=== PATIENT | female | born 1965 | race Caucasian/White ===

== ENCOUNTER → 2018-11-26 10:56 | Outpatient (CLI) | payer OTHER, SELFPAY ==
[2018-11-26 11:49] LABS: Absolute Lymphocyte Count 1.78 X10^3/ul (0.83-4.51); Absolute Neutrophil Count 2.9 X10^3/uL (2.0-7.7); Basophil# 0.02 X10^3/uL; Basophil% 0.4 % (0-1); Eosinophil# 0.08 X10^3/uL; Eosinophils% 1.5 % (0-5); Hematocrit 34.5 % (37-47); Hemoglobin 10.1 g/dl (12.0-15.0); Lymphocyte # 1.78 X10^3/ul (4.0); Lymphocyte % 33.3 % (19-41); Mean Corp Hgb Conc 29.3 g/gl (32-36); Mean Corpuscular Hgb 23.5 pg (27.0-32.0); Mean Corpuscular Volume 80.2 fL (81-99); Monocyte# 0.52 X10^3/uL; Monocyte% 9.7 % (0-10); Neutrophil # 2.94 X10^3/uL (2.7-7.7); Neutrophil % 54.9 % (47-70); Platelet Count 269 K/mm3 (150-450); RBC Distribution Width CV 15.9 % (11.6-14.6); RBC Distribution Width SD 46.5 fl (35.1-43.9); White Blood Count 5.4 K/mm3 (4.4-11.0)
[2018-11-26 11:53] LABS: POSITIVE COUNT NO; POSITIVE DIFFERENTIAL NO; POSITIVE MORPHOLOGY NO
[2018-11-26 12:04] LABS: Hemoglobin A1c 4.9 % (4.2-6.3)
[2018-11-26 12:35] LABS: Vitamin B12 205 pg/mL (211-911); Vitamin D,25 Hydroxy 17.6 ng/mL (29.95-100.01)
[2018-11-26 12:45] LABS: Anion Gap 7 (5-15); BUN 13 mg/dL (7-18); BUN/Creat Ratio 18.7 RATIO (10-20); Calcium,Total 8.4 mg/dL (8.5-10.1); Chloride 107 mmol/L (98-107); Cholesterol 192 mg/dL (200); EST Glomerular Filtration Rate 94 mL/min (>60); Est Glom Filt Rate - Afr Amer 113 mL/min (>60); Glucose 90 mg/dL (74-106); High Density Lipoprotein 73 mg/dL; Sodium Level 139 mmol/L (136-145); Thyroid Stim Hormone (TSH) 2.82 uIU/mL (0.358-3.74); Triglycerides 130 mg/dL; Very Low Density Lipoprotein 26 mg/dL (5-40)
== END ==
PROVIDERS: Family Provider Student in an Organized Health Care Education/Training Program; PCP Student in an Organized Health Care Education/Training Program; Referring Provider Student in an Organized Health Care Education/Training Program; Visit Provider Student in an Organized Health Care Education/Training Program
DX: Z00.00 Encounter for general adult medical examination without abnormal findings (principal); R53.83 Other fatigue; Z79.899 Other long term (current) drug therapy
CPT/HCPCS: 36415; 80048; 80061; 82306; 82607; 83036; 83735; 84443; 85025

== ENCOUNTER → 2020-01-04 | Outpatient (CLI) | payer OTHER, SELFPAY ==
[2020-01-04 15:08] LABS: Absolute Lymphocyte Count 1.82 X10^3/uL (0.83-4.51); Absolute Neutrophil Count 4.1 X10^3/uL (2.0-7.7); Basophil# 0.02 X10^3/uL; Basophil% 0.3 % (0-1); Eosinophil# 0.11 X10^3/uL; Eosinophils% 1.6 % (0-5); Hematocrit 44.7 % (37-47); Hemoglobin 14.3 g/dL (12.0-15.0); Lymphocyte # 1.82 X10^3/ul (4.0); Lymphocyte % 27.2 % (19-41); Mean Corpuscular Hgb 30.1 pg (27.0-32.0); Mean Corpuscular Volume 94.1 fL (81-99); Mean Platelet Vol. 10.2 fl (6.2-12.0); Monocyte# 0.63 X10^3/uL; Monocyte% 9.4 % (0-10); NRBC Flagged by Analyzer 0 % (0-5); Neutrophil # 4.07 X10^3/uL (2.7-7.7); Neutrophil % 61.1 % (47-70); Platelet Count 224 K/mm3 (150-450); RBC Distribution Width CV 13.2 % (11.6-14.6); RBC Distribution Width SD 45.3 fl (35.1-43.9); Red Blood Count 4.75 M/mm3 (4.2-5.4); White Blood Count 6.7 K/mm3 (4.4-11.0)
[2020-01-04 16:13] LABS: Vitamin B12 345 pg/mL (211-911); Vitamin D,25 Hydroxy 29.4 ng/mL (29.95-100.01)
[2020-01-04 17:08] LABS: AST(SGOT) 17 U/L (15-37); Alanine Aminotransfer ALT/SGPT 27 U/L (13-56); Albumin, Serum 3.7 g/dL (3.2-5.0); Alkaline Phosphatase 111 U/L (45-117); Anion Gap 6 (5-15); BUN 23 mg/dL (7-18); BUN/Creat Ratio 27.3 RATIO (10-20); Calcium,Total 8.8 mg/dL (8.5-10.1); Chloride 109 mmol/L (98-107); Creatinine, Serum 0.84 mg/dL (0.55-1.02); EST Glomerular Filtration Rate 75 mL/min (>60); Est Glom Filt Rate - Afr Amer 90 mL/min (>60); Follicle Stimulating Hormone 53.8 mIU/mL; Globulin 3.6 g/dL (2.2-4.2); Glucose 83 mg/dL (74-106); Lipase 220 U/L (73-393); Potassium 4.1 mmol/L (3.5-5.1); Protein, Total 7.3 g/dL (6.4-8.2); Sodium Level 141 mmol/L (136-145); Thyroid Stim Hormone (TSH) 2.13 uIU/mL (0.358-3.74)
== END | disposition home or self-care (01) ==
LOC: LAB 13:47
PROVIDERS: PCP Student in an Organized Health Care Education/Training Program; Referring Provider Student in an Organized Health Care Education/Training Program; Visit Provider Student in an Organized Health Care Education/Training Program
DX: R53.83 Other fatigue (principal); R23.2 Flushing; R11.0 Nausea; R63.0 Anorexia
CPT/HCPCS: 36415; 80053; 82306; 82607; 83001; 83690; 84439; 84443; 85025

== ENCOUNTER → 2021-03-21 10:57 | Outpatient (CLI) | payer OTHER, SELFPAY ==
[2021-03-21 11:28] LABS: Absolute Neutrophil Count 2.7 X10^3/uL (2.0-7.7); Basophil# 0.03 X10^3/uL; Basophil% 0.6 % (0-1); Eosinophil# 0.07 X10^3/uL; Eosinophils% 1.5 % (0-5); Hematocrit 41.9 % (37-47); Hemoglobin 12.9 g/dL (12.0-15.0); Lymphocyte % 33.3 % (19-41); Mean Corp Hgb Conc 30.8 g/dL (32-36); Mean Corpuscular Hgb 28.8 pg (27.0-32.0); Mean Corpuscular Volume 93.5 fL (81-99); Mean Platelet Vol. 9.7 fl (6.2-12.0); Monocyte# 0.42 X10^3/uL; Monocyte% 8.8 % (0-10); NRBC Flagged by Analyzer 0 % (0-5); Neutrophil # 2.67 X10^3/uL (2.7-7.7); Neutrophil % 55.6 % (47-70); Platelet Count 204 K/mm3 (150-450); RBC Distribution Width CV 13.6 % (11.6-14.6); RBC Distribution Width SD 46.5 fl (35.1-43.9); Red Blood Count 4.48 M/mm3 (4.2-5.4); White Blood Count 4.8 K/mm3 (4.4-11.0)
[2021-03-21 12:02] LABS: T3 Total - Triiodothyronine 1.09 ng/mL (0.6-1.81); Vitamin D,25 Hydroxy 19.3 ng/mL
[2021-03-21 12:03] LABS: ALB/GLOB Ratio 1.1 RATIO (0.9-2.4); AST(SGOT) 14 U/L (15-37); Alanine Aminotransfer ALT/SGPT 21 U/L (13-56); Albumin, Serum 3.6 g/dL (3.2-5.0); Alkaline Phosphatase 114 U/L (45-117); Anion Gap 5 (5-15); BUN 18 mg/dL (7-18); BUN/Creat Ratio 22.4 RATIO (10-20); Calcium,Total 8.5 mg/dL (8.5-10.1); Chloride 112 mmol/L (98-107); Cholesterol 189 mg/dL (200); EST Glomerular Filtration Rate 79 mL/min (>60); Est Glom Filt Rate - Afr Amer 95 mL/min (>60); Ferritin 9 ng/mL (8-252); Globulin 3.4 g/dL (2.2-4.2); Glucose 95 mg/dL (74-106); High Density Lipoprotein 74 mg/dL; Sodium Level 142 mmol/L (136-145); T4 Free Direct 0.93 ng/dL (0.76-1.46); Thyroid Stim Hormone (TSH) 1.99 uIU/mL (0.358-3.74); Triglycerides 95 mg/dL; Very Low Density Lipoprotein 19 mg/dL (5-40)
[2021-03-21 12:07] LABS: Hemoglobin A1c 5.1 % (3.8-5.6)
== END ==
PROVIDERS: PCP Student in an Organized Health Care Education/Training Program; Referring Provider Student in an Organized Health Care Education/Training Program; Visit Provider Student in an Organized Health Care Education/Training Program
DX: D50.9 Iron deficiency anemia, unspecified (principal); E66.01 Morbid (severe) obesity due to excess calories; F34.1 Dysthymic disorder; I10 Essential (primary) hypertension; E55.9 Vitamin D deficiency, unspecified; Z11.4 Encounter for screening for human immunodeficiency virus [HIV]; Z13.1 Encounter for screening for diabetes mellitus; Z13.220 Encounter for screening for lipoid disorders; Z13.29 Encounter for screening for other suspected endocrine disorder
CPT/HCPCS: 36415; 80053; 80061; 82306; 82728; 83036; 84439; 84443; 84480; 85025

== ENCOUNTER 2021-12-25 13:57 | Outpatient (CLI) | payer OTHER, SELFPAY ==
[2021-12-25 14:43] LABS: Absolute Lymphocyte Count 3.08 X10^3/uL (0.83-4.51); Absolute Neutrophil Count 3.2 X10^3/uL (2.0-7.7); Basophil# 0.03 X10^3/uL; Basophil% 0.4 % (0-1); Eosinophil# 0.08 X10^3/uL; Eosinophils% 1.1 % (0-5); Hematocrit 38.8 % (37-47); Hemoglobin 12.1 g/dL (12.0-15.0); Lymphocyte # 3.08 X10^3/ul (0.83-4.51); Lymphocyte % 43.6 % (19-41); Mean Corp Hgb Conc 31.2 g/dL (32-36); Mean Corpuscular Volume 86.6 fL (81-99); Mean Platelet Vol. 9.5 fl (6.2-12.0); Monocyte# 0.62 X10^3/uL; Monocyte% 8.8 % (0-10); NRBC Flagged by Analyzer 0 % (0-5); Neutrophil # 3.24 X10^3/uL (2.7-7.7); Platelet Count 251 K/mm3 (150-450); RBC Distribution Width CV 14.9 % (11.6-14.6); RBC Distribution Width SD 47.8 fl (35.1-43.9); Red Blood Count 4.48 M/mm3 (4.2-5.4); White Blood Count 7.1 K/mm3 (4.4-11.0)
[2021-12-25 15:02] LABS: Hemoglobin A1c 5.3 % (3.8-5.6)
[2021-12-25 15:15] LABS: T3 Total - Triiodothyronine 1.26 ng/mL (0.6-1.81); Vitamin B12 329 pg/mL (211-911); Vitamin D,25 Hydroxy 32.3 ng/mL
[2021-12-25 15:18] LABS: ALB/GLOB Ratio 0.9 RATIO (0.9-2.4); AST(SGOT) 18 U/L (15-37); Alanine Aminotransfer ALT/SGPT 18 U/L (13-56); Albumin, Serum 3.5 g/dL (3.2-5.0); Alkaline Phosphatase 113 U/L (45-117); Anion Gap 4 (5-15); BUN 17 mg/dL (7-18); BUN/Creat Ratio 21.6 RATIO (10-20); Calcium,Total 8.4 mg/dL (8.5-10.1); Chloride 109 mmol/L (98-107); Cholesterol 181 mg/dL (200); Creatinine, Serum 0.79 mg/dL (0.55-1.02); EST Glomerular Filtration Rate 80 mL/min (>60); Est Glom Filt Rate - Afr Amer 97 mL/min (>60); Ferritin 11 ng/mL (8-252); Globulin 3.7 g/dL (2.2-4.2); Glucose 100 mg/dL (74-106); High Density Lipoprotein 58 mg/dL; Iron 49 ug/dL (50-170); Iron Binding Capacity,Total 455 ug/dL (250-450); PERCENT IRON SATURATION 10.8 % (15.0-55.0); Potassium 4.5 mmol/L (3.5-5.1); Protein, Total 7.2 g/dL (6.4-8.2); Sodium Level 140 mmol/L (136-145); T4 Free Direct 0.89 ng/dL (0.76-1.46); Thyroid Stim Hormone (TSH) 1.69 uIU/mL (0.358-3.74); Triglycerides 260 mg/dL; Very Low Density Lipoprotein 52 mg/dL (5-40)
== END 2021-12-25 23:59 | disposition home or self-care (01) ==
PROVIDERS: PCP Student in an Organized Health Care Education/Training Program; Visit Provider Student in an Organized Health Care Education/Training Program
DX: Z13.1 Encounter for screening for diabetes mellitus (principal); E66.01 Morbid (severe) obesity due to excess calories; Z11.4 Encounter for screening for human immunodeficiency virus [HIV]; D50.9 Iron deficiency anemia, unspecified; Z13.220 Encounter for screening for lipoid disorders; F34.1 Dysthymic disorder; Z13.29 Encounter for screening for other suspected endocrine disorder; I10 Essential (primary) hypertension; E53.8 Deficiency of other specified B group vitamins; E55.9 Vitamin D deficiency, unspecified
CPT/HCPCS: 36415; 80053; 80061; 82306; 82607; 82728; 83036; 83540; 83550; 84439; 84443; 84480; 85025

== ENCOUNTER → 2022-11-01 | Outpatient (CLI) | payer OTHER, SELFPAY ==
[2022-11-01 10:50] LABS: Hemoglobin A1c 5.5 % (3.8-5.6)
[2022-11-01 10:57] LABS: Vitamin D,25 Hydroxy 40.5 ng/mL
[2022-11-01 11:05] LABS: Cholesterol 174 mg/dL (200); Glucose 102 mg/dL (74-106); High Density Lipoprotein 54 mg/dL; Triglycerides 148 mg/dL; Very Low Density Lipoprotein 30 mg/dL (5-40)
[2022-11-08 16:17] LABS: HPV APTIMA, High Risk Negative (Negative)
== END | disposition home or self-care (01) ==
PROVIDERS: PCP Student in an Organized Health Care Education/Training Program; Referring Provider Obstetrics & Gynecology; Visit Provider Obstetrics & Gynecology
DX: Z12.4 Encounter for screening for malignant neoplasm of cervix (principal); Z13.1 Encounter for screening for diabetes mellitus; E66.9 Obesity, unspecified; Z13.29 Encounter for screening for other suspected endocrine disorder; Z13.21 Encounter for screening for nutritional disorder
CPT/HCPCS: 36415; 80061; 82306; 82947; 83036; 84443; 87624; 88175; G0145

== ENCOUNTER → 2022-11-07 | Outpatient (CLI) | payer OTHER, SELFPAY ==
--- NOTE | 2022-11-07 13:10 | BI_ITS ---
MAMMOGRAPHY - BILATERAL SCREENING REASON FOR EXAM: Female, 57 years old. Routine annual screening examination. PERTINENT HISTORY: Aunt with breast cancer. TECHNIQUE: Digital bilateral breast chrystal (3D mammographic acquisition) in the CC and MLO projections. 2-D mediolateral oblique (MLO) and craniocaudad (CC) views of both breasts were obtained. CAD: Full Field Digital Mammography with Computer Added Detection was performed. COMPARISON: Comparison is made with prior examination 09/17/2017. FINDINGS: Breast Composition: There are scattered areas of fibroglandular density. There are no dominant masses or suspicious calcifications. Stable small benign-appearing bilateral axillary lymph nodes. No other significant abnormalities are identified. There has been no significant change since the prior study. BI/SCRN MAMM (CAD)W/CHRYSTAL BILAT IMPRESSION: Stable bilateral screening mammogram. Yearly follow-up mammogram recommended. (A) ASSESSMENT CATEGORY: BIRADS Category 2: Benign. A letter regarding these results will be sent to the patient by the facility within 30 days. Approximately 10% of breast cancers are not detected by mammography. A normal mammogram should not delay biopsy of a clinically suspicious abnormality. [id number] Electronically Signed: Caio Shankar MD at 14:48 EST ,
== END | disposition home or self-care (01) ==
LOC: OPBI 13:08
PROVIDERS: PCP Student in an Organized Health Care Education/Training Program; Visit Provider Obstetrics & Gynecology
DX: Z12.31 Encounter for screening mammogram for malignant neoplasm of breast (principal)
CPT/HCPCS: 77063; 77067

== ENCOUNTER → 2023-02-06 | Outpatient (CLI) | payer OTHER, SELFPAY ==
--- NOTE | 2023-02-07 08:21 | PFT ---
INTRODUCTION: The patient is a 57-year-old female that presents for pulmonary function studies secondary to a diagnosis of asthma. Respiratory therapy reported good patient effort. Bronchodilators were used during testing. INTERPRETATION: Forced expiration spirometry demonstrates the presence of a mild large airways obstructive ventilatory defect. There was a significant response to aerosolized bronchodilators. Spirograms are of good quality and plateau normally. Body plethysmography was performed and reveals lung volumes to be within normal limits. Diffusing capacity by single breath CO was also within normal limits. IMPRESSION: Partially reversible mild large airways obstructive ventilatory defect with preserved lung volumes and diffusing capacity.
== END | disposition home or self-care (01) ==
PROVIDERS: PCP Student in an Organized Health Care Education/Training Program; Referring Provider Internal Medicine Critical Care Medicine; Visit Provider Internal Medicine Critical Care Medicine
DX: J45.909 Unspecified asthma, uncomplicated (principal)
CPT/HCPCS: 94060; 94726; 94729

== ENCOUNTER → 2023-12-31 | Outpatient (CLI) | payer OTHER, SELFPAY ==
--- OUTSIDE RECORDS SUMMARY | 2023-12-31 12:01 | XMS RPT_ITS | CCD ---
Author Name Unknown Address [address] [place] [address] Organization [facility] Care Team Providers Care Bee Producer Name Role Phone Jaime Porter DO Primary Care Provider JAIME PORTER Referring Unavailable JAIME PORTER Attending Unavailable JAIME PORTER Primary Care Unavailable Allergies Allergy Classification Reported Allergen(s) Allergy Type Date of Onset Reaction(s) Facility (5 sources) NITROFURANTOIN, MACROCRYSTALS / Nitrofurantoin, Monohydrate; Translations: [NITROFURANTOIN MONOHYD/M-CRYST] Drug Allergy 6 [facility] Work Phone: (5 sources) Salicylate product; Translations: [SALICYLATES] Propensity to adverse reactions 5 [facility] Work Phone: (4 sources) time release medication [Other] Propensity to adverse reactions 6 Other: See Comments [facility] Work Phone: (1 source) OTHER; Translations: [OTHER] Propensity to adverse reactions (disorder) 6 [facility] Repository Medications Completed/Discontinued Medications Medication Drug Class(es) Dates Sig (Normalized) Sig (Original) [id number] 200 actuat albuterol 0.09 mg/actuat metered dose inhaler (4 sources) beta2-Adrenergic Agonist Start: 04-02-2023 take 2 puff(s) by inhalation every four hours as needed albuterol HFA (PROAIR HFA) 90 mcg/actuation inhaler Indications: Moderate persistent reactive airway disease without complication Inhale 2 Puffs as instructed every 4 hours as needed. 18 g 3 04/02/2023 Active Problems Active Problems Problem Classification Problem Date Documented Da te Episodic/Chronic Asthma (5 sources) Reactive airway disease; Translations: [Unspecified asthma, uncomplicated] Onset: 12-01-2018 12-01-2018 Chronic Essential hypertension (4 sources) Essential hypertension; Translations: [Essential (primary) hypertension] Onset: 08-21-2005 09-26-2016 Chronic Headache; including migraine (8 sources) Migraine with aura; Translations: [Migraine with aura, not intractable, without status migrainosus] Onset: 08-11-2014 08-04-2010 Chronic Mood disorders (5 sources) Dysthymia; Translations: [Dysthymic disorder] Onset: 08-21-2005 10-02-2016 Chronic Nutritional deficiencies (5 sources) Vitamin D deficiency; Translations: [Vitamin D deficiency, unspecified] Onset: 08-04-2010 08-04-2010 Chronic Other nutritional; endocrine; and metabolic disorders (8 sources) Body mass index 40+ - severely obese; Translations: [Morbid (severe) obesity due to excess calories] Onset: 08-22-2005 03-19-2018 Chronic Other nutritional; endocrine; and metabolic disorders (4 sources) Disorder of phosphorus metabolism; Translations: [Disorder of phosphorus metabolism, unspecified] Onset: 03-12-2007 03-12-2007 Chronic Other screening for suspected conditions (not mental disorders or infectious disease) (1 source) Patient encounter status; Translations: [Encounter for screening mammogram for malignant neoplasm of breast] Episodic Other upper respiratory disease (5 sources) Allergic rhinitis; Translations: [Allergic rhinitis, unspecified] Onset: 12-01-2018 12-01-2018 Chronic Past or Other Problems Problem Classification Problem Date Documented Date Episodic/Chronic Deficiency and other anemia (4 sources) Iron deficiency anemia; Translations: [Iron deficiency anemia, unspecified] Onset: 12-01-2018 12-01-2018 Episodic Malaise and fatigue (4 sources) Fatigue; Translations: [Other fatigue] Onset: 12-01-2018 12-01-2018 Episodic Nutritional deficiencies (4 sources) Cobalamin deficiency; Translations: [Deficiency of other specified B group vitamins] Onset: 12-01-2018 12-01-2018 Episodic Other and unspecified benign neoplasm (4 sources) Benign neoplasm of soft tissue; Translations: [Benign neoplasm of connective and other soft tissue, unspecified] Onset: 01-04-2012 01-04-2012 Episodic Other connective tissue disease (4 sources) Neuropathy; Translations: [Neuralgia, neuritis, and radiculitis, unspecified] Onset: 08-01-2012 08-01-2012 Episodic Other skin disorders (4 sources) Ingrowing nail; Translations: [Ingrowing nail] Onset: 09-20-2005 09-20-2005 Episodic Other skin disorders (4 sources) Acne; Translations: [Acne, unspecified] Onset: 02-10-2010 02-10-2010 Episodic Residual codes; unclassified (4 sources) History of endometrial ablation; Translations: [Other specified postprocedural states] Onset: 12-04-2012 12-04-2012 Episodic Results Test Name Value Interpretation Reference Range Facil ity Encounters Encounter Date Encounter Type Care Provider Facility Start: 12-30-2023 Telephone encounter Jaime cooper DO Work Phone: [facility] Procedures Date Procedure Procedure Detail Performing Clinician Start: 03-21-2021 Lipid 1996 panel - Serum or Plasma Jaime Porter DO Work Phone: Start: 09-17-2017 Mammography Jaime Porter DO Work Phone: Start: 10-15-2016 Colonoscopy Jaime Porter DO Work Phone: Start: 08-22-2005 History of gastrointestinal tract bypass Intestinal bypass or anastomosis status Jaime Porter DO Work Phone: Plan of Treatment Date Care Activity Detail Author Start: 12-02-2027 Screening for malignant neoplasm of cervix HPV Testing [facility] Start: 12-02-2026 Screening for malignant neoplasm of cervix Pap Testing [facility] Start: 10-15-2026 Colonoscopy COLONOSCOPY [facility] Start: 10-15-2026 COLORECTAL CANCER SCREENING COLORECTAL CANCER SCREENING [facility] Start: 10-15-2026 Screening for malignant neoplasm of colon [facility] Start: 03-21-2026 Lipid panel Lipid Screening [facility] Start: 03-21-2026 LIPID SCREEN LIPID SCREEN [facility] Start: 04-02-2024 Annual PCP Team Chronic Disease Visit Annual PCP Team Chronic Disease Visit [facility] Start: 03-29-2024 BP Controlled (<130/80) BP Controlled (<130/80) [facility] Start: 03-21-2024 DIABETES SCREEN DIABETES SCREEN [facility] Start: 03-21-2024 Diabetes Screening Diabetes Screening [facility] Start: 07-19-2023 Covid-19 Vaccine () Covid-19 Vaccine () [facility] Start: 07-19-2023 Influenza vaccination Influenza Vaccine (#[facility]) [facility] Start: 03-18-2023 Urine microalbumin profile [facility] Start: 07-19-2022 Influenza vaccination INFLUENZA (#1) [facility] Start: 04-21-2022 ANNUAL PCP TEAM CHRONIC DISEASE VISIT ANNUAL PCP TEAM CHRONIC DISEASE VISIT [facility] Start: 03-25-2021 COVID-19 VACCINE (2 - Booster for Nayeli series) COVID-19 VACCINE (2 - Booster for Nayeli series) [facility] Start: 02-28-2021 HPV TESTING HPV TESTING [facility] Start: 02-28-2021 PAP TESTING PAP TESTING [facility] Start: 09-17-2018 Mammography MAMMOGRAM [facility] Start: 09-17-2018 Screening for malignant neoplasm of breast Mammogram Screening [facility] Start: 2015 SHINGRIX VACCINE (1 of 2) SHINGRIX VACCINE (1 of 2) [facility] Start: 2010 COLOGUARD (FIT-DNA) COLOGUARD (FIT-DNA) [facility] Start: [address] COLONOGRAPHY [facility] Start: 2010 FECAL OCCULT BLOOD FECAL OCCULT BLOOD [facility] Start: 2010 Screening for malignant neoplasm of colon [facility] Start: 2010 SIGMOIDOSCOPY SIGMOIDOSCOPY [facility] Start: 1983 BP CONTROLLED (<130/80) BP CONTROLLED (<130/80) [facility] Start: 1983 HIV SCREENING HIV SCREENING [facility] Start: 1983 HIV screening HIV Screening [facility] Start: 1965 HEPATITIS B (1 of 3 - 3-dose series) HEPATITIS B (1 of 3 - 3-dose series) [facility] Start: 1965 Hepatitis B Vaccine (1 of 3 - 3-dose series) Hepatitis B Vaccine (1 of 3 - 3-dose series) [facility] End: 06-15-2023 Screening mammography bi 2-view breast inc cad [facility] SCREEN[facility] Radiology Routine Encounter for screening mammogram for breast cancer 1 Occurrences starting 05/16/2022 until 06/15/2023 [facility] Work Phone: Immunizations Immunization Date Immunization Notes Care Provider Yaw mancini 01-28-2021 COVID-19 vaccine (NAYELI) Jaime Porter DO Work Phone: [facility] 12-01-2018 influenza virus vacc ine, unspecified formulation Jaime Porter DO Work Phone: [facility] 03-18-2013 tetanus toxoid, redu eugene diphtheria toxoid, and acellular pertussis vaccine, adsorbed Jaime Porter DO Work Phone: [facility] Payers Date Payer Category Payer Unknown MMO [employer] [id number] 2022-Present [phone] [address] [place] [address] Indemnity [id number] 2022 Unknown [id number] 2021 Unknown [employer] [id number] 2021-Present [phone] [address] [place] [address] PPO [id number] Social History Date Type Detail Facility Start: 10-29-2012 Tobacco smoking stat us WYIS Never smoked tobacco [facility] Start: 04-21-2021 End: 04-02-2023 Alcohol intake Current non-drinker of alcohol (finding) [facility] Start: 1965 Sex Assigned At Not on file [facility] Start: 10-29-2012 Tobacco use and exposure Smokeless tobacco non-user [facility] Work Phone: Start: 12-01-2018 End: 04-02-2023 History of Social function [facility] Start: 12-01-2018 End: 04-02-2023 Tobacco use panel [facility] Adult Depression Screening Assessment 0 [facility] Clinical Notes 08-01-2012 to 12-30-2023 Telephone Encounter - Yin Lindsey RN - 12/30/2023 8:55 AM ESTTelephone Encounter - Alina Harvey LPN - 01/16/2023 1:45 PM ESTTelephone Encounter - Sachi Lorie Pss - 01/15/2023 9:02 AM EST Note Date & Type Note Facility 12-30-2023 Miscellaneous Notes Acacia from [facility] called in to see if we had any updated OV on Pt having pulmonary issues. She said the Pt states she has been having issues since October. I let her know that last OV Pt had with provider was 04/02/23, she said she didn't need that sent. She said it looked like she had been going to the [facility] and they were having issues getting the reports from them. I told her we couldn't send them to them if we had them. She said she will have to hope that they get back to her. documented in this encounter [facility] 04-24-2023 Note Patient Outreach (IN [facility]) AILEEN SRINIVASAN ([id number]) 1965 F Date Time Provider Department 04/24/23 JAIME PORTER During your visit today, we recorded the following information about you: Allergies As of Date: 04/24/2023 Noted Allergy Reaction ASA (SALICYLATES) 08/21/2005 Comments: due to surgery MACROBID (NITROFURANTOIN MONOHYD/*05/07/2006 Comments: Severe Migraines time release medication [Other] 11/22/2005 14 - Other: See Comments Comments: in effective due to gastric bypass Date Reviewed: 04/21/2021 Reviewed by: Suellen Bull LPN - Fully Assessed Visit Diagnosis:Encounter for screening mammogram for breast cancer [Z12.31] Order(s):[facility] S[facility]ENING [[id number]] Order #: [id number] FUTURE Prescriptions as of 04/29/2023 - sertraline (ZOLOFT) 100 mg tablet Take 2 tablets by mouth once daily. - fluticasone-salmeterol (ADVAIR DISKUS) 500-50 mcg/dose dsdv Inhale 1 Puff as instructed twice daily. - SUMAtriptan (IMITREX) 100 mg tablet Take 1 tablet by mouth. Take one(1) at onset of headache, may repeat dose in 2 hours - cholecalciferol, Vitamin D3, (VITAMIN D3) 1,250 mcg (50,000 unit) cap capsule Take 1 capsule by mouth one time a week. - montelukast (SINGULAIR) 10 mg tablet Take 1 tablet by mouth daily at bedtime. - albuterol HFA (PROAIR HFA) 90 mcg/actuation inhaler Inhale 2 Puffs as instructed every 4 hours as needed. - furosemide (LASIX) 20 mg tablet Take 1 tablet by mouth once daily. For leg swelling - Ascorbic Acid (VITAMIN C) 100 mg tablet Take 100 mg by mouth once daily. - multivit with minerals/lutein (MULTIVITAMIN 50 PLUS ORAL) Take by mouth. - APPLE CIDER VINEGAR ORAL Take 1 tablet by mouth three times a week. - azithromycin (ZITHROMAX Z-GRECIA) 250 mg tablet Take two pills the first day and then one pill daily for 4 days. - Cyanocobalamin (VITAMIN B-12) 1,000 mcg SUBLINGUAL Subl Dissolve 1 tablet under the tongue once daily. - COMPOUNDED PRESCRIPTION Magnesium 500mg once daily Problem List As Of Date 04/24/2023 Noted Resolved Dysthymia [F34.1] 08/21/2005 Essential hypertension [I10] 08/21/2005 Obesity, Class III, BMI 40-49.9 (morbid obesity*08/22/2005 INTESTINAL BYPASS STATUS [Z98.0] 08/22/2005 INGROWING NAIL [L60.0] 09/20/2005 Incisional hernia without mention of obstructio*05/03/2006 12/04/2012 DIS PHOSPHORUS METABOL [E83.30] 03/12/2007 Acne [L70.9] 02/10/2010 Mgrn w [facility] Mgrn [G43.109] Vitamin D Deficiency [E55.9] 08/04/2010 Benign rodrigue soft tissue [D21.9] 01/04/2012 Scar condition and fibrosis of skin [L90.5] 08/01/2012 12/04/2012 Neuralgia, neuritis, and radiculitis, unspecifi*08/01/2012 S/P endometrial ablation [Z98.890] 12/04/2012 Migraine with aura [G43.109] 08/11/2014 Fatigue [R53.83] 12/01/2018 Morbid obesity with BMI of 45.0-49.9, adult (HC*12/01/2018 Allergic rhinitis [J30.9] 12/01/2018 Reactive airway disease [J45.909] 12/01/2018 Iron deficiency anemia [D50.9] 12/01/2018 Vitamin B12 deficiency [E53.8] 12/01/2018 Encounter Status:Closed by [employer], [employer] EntertainmentUSER on 04/29/23 [facility] 04-11-2023 Note HNO ID: [id number] Author: Jaime Porter, DO Service: ? Author Type: Physician Type: Progress Notes Filed: 04/11/2023 12:16 PM Note Text: CC: Aileen Srinivasan is a 57 year old female who presents to the office for physical HPI: Overall healthy and doing well Mood, does admit to being a little irritable lately and anxious at times. has also noticed these changes, denies depression or SI or HI. Has had a loss of a granddaughter from her daughter. Is still enjoying her job. Wondering if dose of her zoloft can be increased. Migraine HAs long standing, use of imitrex as needed, going to consider seeing a chiropractor as well. No new neck pain, does get some muscle tension in neck when driving long periods of time. HTN, diet controlled. 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 Asthma, allergies, stable, using inhalers as prescribed She refuses immunizations as recommended PAST MEDICAL HISTORY Diagnosis Date Acne 02/10/2010 plus ? perioral dermatitis Anemia, unspecified Depressive disorder, not elsewhere classified Hypertension Migraine with aura, without mention of intractable migraine without mention of status migrainosus Obesity, unspecified Osteomalacia, unspecified Snoring TMJ dysfunction right Ventral hernia, unspecified, without mention of obstruction or gangrene Vitamin D Deficiency 08/04/2010 PAST SURGICAL HISTORY Procedure Laterality Date ADENOIDECTOMY PRIMARY Adenoidectomy DELIVERY ONLY , low cervical X3 CHOLECYSTECTOMY Cholecystectomy COLONOSCOPY FLX DX W/COLLJ SPEC WHEN PFRMD 10/15/16 Colonoscopy PAST SURGICAL HISTORY OF gastric bypass PAST SURGICAL HISTORY OF novasure TONSILLECTOMY PRIMARY/SECONDARY Tonsillectomy Social History: Social History Tobacco Use Smoking status: Never Smokeless tobacco: Never Substance Use Topics Alcohol use: No Drug use: No FAMILY HISTORY Problem Relation Age of Onset Heart Mother other (tumor) Mother brain, it was a brain tumor not cancerous, was treated as if. Diabetes Father Diabetes Maternal Grandfather Current Outpatient prescriptions: fluticasone-salmeterol (ADVAIR DISKUS) 500-50 mcg/dose dsdv Inhale 1 Puff as instructed twice daily. Ascorbic Acid (VITAMIN C) 100 mg tablet Take 100 mg by mouth once daily. multivit with minerals/lutein (MULTIVITAMIN 50 PLUS ORAL) Take by mouth. APPLE CIDER VINEGAR ORAL Take 1 tablet by mouth three times a week. azithromycin (ZITHROMAX Z-GRECIA) 250 mg tablet Take two pills the first day and then one pill daily for 4 days. Cyanocobalamin (VITAMIN B-12) 1,000 mcg SUBLINGUAL Subl Dissolve 1 tablet under the tongue once daily. COMPOUNDED PRESCRIPTION Magnesium 500mg once daily SUMAtriptan (IMITREX) 100 mg tablet Take 1 tablet by mouth. Take one(1) at onset of headache, may repeat dose in 2 hours cholecalciferol, Vitamin D3, (VITAMIN D3) 1,250 mcg (50,000 unit) cap capsule Take 1 capsule by mouth one time a week. sertraline (ZOLOFT) 100 mg tablet Take 1.5 tablets by mouth once daily. montelukast (SINGULAIR) 10 mg tablet Take 1 tablet by mouth daily at bedtime. albuterol HFA (PROAIR HFA) 90 mcg/actuation inhaler Inhale 2 Puffs as instructed every 4 hours as needed. furosemide (LASIX) 20 mg tablet Take 1 tablet by mouth once daily. For leg swelling Allergies: ALLERGIES Allergen Reactions Asa [Salicylates] due to surgery Macrobid [Nitrofura* Severe Migraines Time Release Medica* Other: See Comments in effective due to gastric bypass ROS: See HPI PE: 04/02/23 1227 BP: 132/84 Pulse: 64 Resp: 16 Temp: 36.3 ?C (97.3 ?F) TempSrc: Right Tympanic Height: 165.1 cm (5' 5 ) Gen: AANDO, NAD, non-toxic appearing, Pleasant, cooperative HEENT: NT/AC, PERRLA, wearing glasses, EOMs intact b/l, nares clear and patent b/l, pharynx without erythema, exudate or lesions. Uvula midline. MMM, EACs without erythema or debris. TMs pearly thomas with intact landmarks b/l. Neck: supple, No cervical LAD, no thyromegaly, no carotid bruits CV: RRR, normal S1 and S2, no murmurs, no gallops, no rubs, Pulses 2+ and symmetric in UE and LE b/l Lungs: normal respiratory effort, CTA b/l, no wheezing or rhonchi or rales Abd: soft, central obesity, NT, ND, +BS, no hepatosplenomegaly MS: FROM all 4 extremities Neuro: CN II-XII intact b/l, strength 5/5 b/l UE and LE, DTRs 2/4 UE and LE, sensation intact. Skin: warm, dry, intact, No rashes or lesions on exposed skin. No edema, normal pulses Varicose veins present ASSESSMENT/PLAN: 1. Well adult exam - ICD9: V70.0, ICD10: Z00.00 (primary diagnosis) - Counseled on healthy diet and regular exercise - Calcium intake with supplements or by diet of 1000 mg/day for under 50, 1323-4384 mg/day for 50+ 2. Vitamin (more content not included)... [facility] 01-16-2023 Miscellaneous Notes Pt notified of such. Overdue for appointment. Please schedule. Will only refill x1. Thank you, Jaimie Christiansen APRN.CNP The following approved medication requests have been transmitted electronically. Requested Prescriptions Signed Prescriptions Disp Refills SUMAtriptan (IMITREX) 100 mg tablet 12 tablet 0 Sig: Take 1 tablet by mouth. Take one(1) at onset of headache, may repeat dose in 2 hours Authorizing Provider: JAIMIE CHRISTIANSEN cholecalciferol, Vitamin D3, (VITAMIN D3) 1,250 mcg (50,000 unit) cap capsule 12 capsule 0 Sig: Take 1 capsule by mouth one time a week. Authorizing Provider: JAIMIE CHRISTIANSEN sertraline (ZOLOFT) 100 mg tablet 135 tablet 0 Sig: Take 1.5 tablets by mouth once daily. Authorizing Provider: JAIMIE CHRISTIANSEN APRN.CNP Patient has been identified by name and date of : Yes Last office visit in this department: 04/21/2021 RX INSTRUCTIONS: Patient aware RX escripted to mail away pharmacy. No need to notify patient. Patient phones requesting refills as follows: Requested Prescriptions Pending Prescriptions Disp Refills SUMAtriptan (IMITREX) 100 mg tablet 12 tablet 3 Sig: Take 1 tablet by mouth. Take one(1) at onset of headache, may repeat dose in 2 hours cholecalciferol, Vitamin D3, (VITAMIN D3) 1,250 mcg (50,000 unit) cap capsule 12 capsule 3 Sig: Take 1 capsule by mouth one time a week. sertraline (ZOLOFT) 100 mg tablet 135 tablet 3 Sig: Take 1.5 tablets by mouth once daily. Please review and advise. Sachi Melo Pss documented in this encounter [facility] 01-15-2023 Miscellaneous Notes Patient has been identified by name and date of : Patient phones for refill(s): Requested Prescriptions Pending Prescriptions Disp Refills montelukast (SINGULAIR) 10 mg tablet 90 tablet 3 Sig: Take 1 tablet by mouth daily at bedtime. Date of last office visit in primary care: 04/21/21 Has Appt. scheduled in March Last 2 Encounter Wt Readings: Date: Wt: 04/21/2021 0 kg () 12/01/2018 126.6 kg (279 lb) Previous labs/tests for medication: Not applicable Please advise. Thank you. Bridgett Palacios LPN documented in this encounter [facility] documented as of this encounter (statuses as of 05/21/2022) [facility]09-14-2012 History of Past illness Narrative* Problem Noted Date Resolved Date Scar condition and fibrosis of skin 08/01/2012 12/04/2012 Incisional hernia without mention of obstruction or gangrene 05/03/2006 12/04/2012 documented as of this encounter (statuses as of 01/16/2023) [facility] History of Past illness Narrative* Problem Noted Date Resolved Date Scar condition and fibrosis of skin 08/01/2012 12/04/2012 Incisional hernia without mention of obstruction or gangrene 05/03/2006 12/04/2012 documented as of this encounter (statuses as of 01/16/2023) [facility] History of Past illness Narrative* Problem Noted Date Diagnosed Date Resolved Date Scar condition and fibrosis of skin 08/01/2012 12/04/2012 Incisional hernia without me ntion of obstruction or gangrene 05/03/2006 12/04/2012 documented as of this encounter (statuses as of 12/30/2023) [facility] Encounter for screening mammogram for breast cancer [facility] Diagnosis Moderate persistent reactive airway disease without complication Allergic rhinitis due to other allergic trigger, unspecified seasonality [facility] Diagnosis Vitamin D deficiency Unspecified vitamin D deficiency Dysthymia Dysthymic disorder [facility] Diagnostic Procedure Only (Routine) - Pending Review Specialty Diagnoses / Procedures Referred By Obie t Referred To Contact [facility] Diagnoses Encounter for screening mammogram for breast cancer Procedures [facility] SCREENING SCREENING MAMMOGRAPHY BI 2-VIEW BREAST INC CAD Jaime Porter DO [address] [place] [address] [facility] [address] [place] [address] Referral ID Status Reason Start Date Expiration Date Visits Requested Visits Authorized [id number] Pending Review Auto-Generat ed Referral 05/16/2022 06/15/2023 1 1 [facility] Advance Directives No Advanced Directives Records FoundDocuments on File Type Date Recorded 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 Advance Directive(s) 10/15/2016 1:19 PM Advance Directive(s) 10/10/2016 8:56 AM Summary Purpose Family History No Family History Records Found Additional Source Comments Source Comments (unrecognize d section and content) In the event this informatio n is protected by the Federal Confidentiality of Alcohol and Drug Abuse Patient Records regulations: The Federal rules restrict any use of the information to criminally investigate or prosecute any alcohol or drug abuse patient.[facility] the event this information is protected by the Federal Confidentiality of Alcohol and Drug Abuse Patient Records regulations: The Federal rules restrict any use of the information to criminally investigate or prosecute any alcohol or drug abuse patient.[facility] the event this information is protected by the Federal Confidentiality of Alcohol and Drug Abuse Patient Records regulations: The Federal rules restrict any use of the information to criminally investigate or prosecute any alcohol or drug abuse patient.[facility] the event this information is protected by the Federal Confidentiality of Alcohol and Drug Abuse Patient Records regulations: The Federal rules restrict any use of the information to criminally investigate or prosecute any alcohol or drug abuse patient.[facility] Care Teams (unrecognized sec tion and content) Bee Producer Relationship Specialty Start Date End Date Jaime Porter DO [address] [place] [address] PCP - General Family Medicine 08/11/14 Bee Producer Relationship Specialty Start Date End Date Jaime Porter DO [address] [place], [place] [id number] PCP - General Family Medicine 08/11/14 Bee Producer Relationship Specialty Start Date End Date Jaime Porter DO [address] [place] [address] PCP - General Family Medicine 08/11/14 Reason for Visit (unrecogniz ed section and content) Reason Comments Patient Question INFORMATION SOURCE (unrecogn ized section and content) FOR RECORDS PERTAINING TO PATIENTS WHO ARE OR HAVE BEEN ENROLLED IN A CHEMICAL DEPENDENCY/SUBSTANCEABUSE PROGRAM, SOME INFORMATION MAY BE OMITTED. This clinical summary was aggregated from multiple sources. Caution should be exercised in using it in the provision of clinical care. This summary normalizes information from multiple sources, and as a consequence, information in this document may materially change the coding, format and clinical context of patient data. In addition, data may be omitted in some cases. CLINICAL DECISIONS SHOULD BE BASED ON THE PRIMARY CLINICAL RECORDS. [facility]. provides no warranty or guarantee of the accuracy or completeness of information in this document.
== END | disposition home or self-care (01) ==
PROVIDERS: PCP Student in an Organized Health Care Education/Training Program; Referring Provider Nurse Practitioner Acute Care; Visit Provider Nurse Practitioner Acute Care
DX: J45.909 Unspecified asthma, uncomplicated (principal)
CPT/HCPCS: 87070; 87077; 87186; 87205

== ENCOUNTER → 2024-03-04 | Outpatient (CLI) | payer OTHER, SELFPAY ==
[2024-03-12 09:09] LABS: Aspirgillus flavus Negative (Neg:<1:1); Aspirgillus fumigatus Negative (Neg:<1:1); Aspirgillus niger Negative (Neg:<1:1); Cytoplasmic Ab (C-ANCA) <1:20 titer (Neg:<1:20); Immunoglobulin E 16 IU/mL (6-495); Perinuclear Ab (P-ANCA) <1:20 titer (Neg:<1:20)
[2024-03-13 00:07] LABS: Alternaria alternata <0.10 kU/L (Class 0); Bermuda Grass <0.10 kU/L (Class 0); Bluegrass, Kentucky <0.10 kU/L (Class 0); Cat Hair/Dander, Standard <0.10 kU/L (Class 0); D farinae Mite <0.10 kU/L (Class 0); D pteronyssinus <0.10 kU/L (Class 0); Dog Epithelia <0.10 kU/L (Class 0); Elm, American White <0.10 kU/L (Class 0); Mouse Urine <0.10 kU/L (Class 0); Oak, White <0.10 kU/L (Class 0); Plantain, English <0.10 kU/L (Class 0); Ragweed, Short/Common <0.10 kU/L (Class 0)
== END | disposition home or self-care (01) ==
LOC: PAVLAB 15:06
PROVIDERS: PCP Student in an Organized Health Care Education/Training Program; Referring Provider Nurse Practitioner Acute Care; Visit Provider Nurse Practitioner Acute Care
DX: J30.2 Other seasonal allergic rhinitis (principal)
CPT/HCPCS: 36415; 82785; 86003; 86256; 86606

== ENCOUNTER → 2024-05-29 | Outpatient (CLI) | payer OTHER, SELFPAY ==
--- NOTE | 2024-05-29 10:33 | BI_ITS ---
MAMMOGRAPHY - BILATERAL SCREENING REASON FOR EXAM: Female, 58 years old. Routine annual screening examination. PERTINENT HISTORY: Aunt with breast cancer. TECHNIQUE: Digital bilateral breast chrystal (3D mammographic acquisition) in the CC and MLO projections. 2-D mediolateral oblique (MLO) and craniocaudad (CC) views of both breasts were obtained. CAD: Full Field Digital Mammography with Computer Added Detection was performed. COMPARISON: Comparison is made with prior study dated November 07, 2022. FINDINGS: Breast Composition: There are scattered areas of fibroglandular density. There are no dominant masses or suspicious calcifications. Stable small benign-appearing bilateral axillary lymph nodes. No other significant abnormalities are identified. There has been no significant change since the prior study. BI/SCRN MAMM (CAD)W/CHRYSTAL BILAT IMPRESSION: Stable bilateral screening mammogram. Yearly follow-up mammogram recommended. (A) ASSESSMENT CATEGORY: BIRADS Category 2: Benign. A letter regarding these results will be sent to the patient by the facility within 30 days. Approximately 10% of breast cancers are not detected by mammography. A normal mammogram should not delay biopsy of a clinically suspicious abnormality. [id number] Electronically Signed: Caio Shankar MD at 11:13 EDT ,
== END | disposition home or self-care (01) ==
LOC: OPBI 10:32
PROVIDERS: PCP Student in an Organized Health Care Education/Training Program; Referring Provider Nurse Practitioner Family; Visit Provider Nurse Practitioner Family
DX: Z12.31 Encounter for screening mammogram for malignant neoplasm of breast (principal)
CPT/HCPCS: 77063; 77067

== ENCOUNTER → 2024-06-01 | Outpatient (CLI) | payer OTHER, SELFPAY ==
--- NOTE | 2024-06-01 12:35 | EKG12_ITS ---
Test Reason : CHEST PAIN' Blood Pressure : / mmHG Vent. Rate : 069 BPM Atrial Rate : 069 BPM P-R Int : 192 ms QRS Dur : 084 ms QT Int : 352 ms P-R-T Axes : 034 -08 024 degrees QTc Int : 377 ms Normal sinus rhythm Normal ECG Confirmed by KARY ARELLANO, SARWAT ([id number]), film and video editor MARIMAR LARSON ([id number]) on 06/03/2024 9:46:34 AM Referred By: Kitty Isabel Confirmed By:NIK PRESTON MD
== END | disposition home or self-care (01) ==
PROVIDERS: PCP Student in an Organized Health Care Education/Training Program; Referring Provider Nurse Practitioner Family; Visit Provider Nurse Practitioner Family
DX: R07.9 Chest pain, unspecified (principal)
CPT/HCPCS: 93005

== ENCOUNTER → 2024-06-08 | Outpatient (CLI) | payer OTHER, SELFPAY ==
[2024-06-08 08:26] LABS: Absolute Lymphocyte Count 2.66 X10^3/uL (0.83-4.51); Absolute Neutrophil Count 2.6 X10^3/uL (2.0-7.7); Basophil# 0.04 X10^3/uL; Basophil% 0.7 % (0-1); Eosinophil# 0.13 X10^3/uL; Eosinophils% 2.2 % (0-5); Hematocrit 36.6 % (37-47); Hemoglobin 11.1 g/dL (12.0-15.0); Lymphocyte # 2.66 X10^3/ul (0.83-4.51); Lymphocyte % 44.9 % (19-41); Mean Corp Hgb Conc 30.3 g/dL (32-36); Mean Corpuscular Hgb 25.5 pg (27.0-32.0); Mean Corpuscular Volume 84.1 fL (81-99); Mean Platelet Vol. 10.2 fl (6.2-12.0); Monocyte% 8.4 % (0-10); NRBC Flagged by Analyzer 0 % (0-5); Neutrophil # 2.58 X10^3/uL (2.7-7.7); Neutrophil % 43.5 % (47-70); Platelet Count 283 K/mm3 (150-450); RBC Distribution Width CV 15.9 % (11.6-14.6); RBC Distribution Width SD 48.6 fl (35.1-43.9); Red Blood Count 4.35 M/mm3 (4.2-5.4); White Blood Count 5.9 K/mm3 (4.4-11.0)
[2024-06-08 09:07] LABS: Vitamin B12 179 pg/mL (211-911); Vitamin D,25 Hydroxy 48.9 ng/mL
[2024-06-08 09:17] LABS: ALB/GLOB Ratio 1.1 RATIO (0.9-2.4); AST(SGOT) 15 U/L (15-37); Alanine Aminotransfer ALT/SGPT 18 U/L (13-56); Albumin, Serum 3.7 g/dL (3.2-5.0); Alkaline Phosphatase 101 U/L (45-117); Anion Gap 9 (5-15); BUN 23 mg/dL (7-18); CRP < 2.90 mg/L (0.0-3.0); Calcium,Total 8.7 mg/dL (8.5-10.1); Chloride 108 mmol/L (98-107); Cholesterol 180 mg/dL (200); Creatinine, Serum 0.96 mg/dL (0.55-1.02); EST Glomerular Filtration Rate 64 mL/min (>60); Est Glom Filt Rate - Afr Amer 77 mL/min (>60); Free T3 2.4 pg/mL (2.18-3.98); Globulin 3.3 g/dL (2.2-4.2); Glucose 90 mg/dL (74-106); High Density Lipoprotein 75 mg/dL; Potassium 3.9 mmol/L (3.5-5.1); Sodium Level 140 mmol/L (136-145); T4 Free Direct 0.91 ng/dL (0.76-1.46); T4 Total, Thyroxin 8.8 ug/dL (4.8-13.9); Thyroid Stim Hormone (TSH) 2.47 uIU/mL (0.358-3.74); Triglycerides 86 mg/dL; Very Low Density Lipoprotein 17 mg/dL (5-40)
== END | disposition home or self-care (01) ==
PROVIDERS: PCP Student in an Organized Health Care Education/Training Program; Referring Provider Student in an Organized Health Care Education/Training Program; Visit Provider Student in an Organized Health Care Education/Training Program
DX: Z00.00 Encounter for general adult medical examination without abnormal findings (principal); J45.909 Unspecified asthma, uncomplicated; R53.83 Other fatigue
CPT/HCPCS: 36415; 80053; 80061; 82306; 82607; 83036; 84436; 84439; 84443; 84481; 85025; 86140; 87070; 87205

== ENCOUNTER → 2024-07-01 | Outpatient (CLI) | payer OTHER, SELFPAY ==
--- NOTE | 2024-07-01 09:48 | ECHOD_ITS ---
Reason For Study: Chest pain Procedure This was a 2D Doppler, Color Flow transthoracic echocardiogram. Exam performed in department. Left Ventricle Normal LV size. Mild concentric left ventricular hypertrophy. The left ventricular ejection fraction is 65 %. Stage 1 diastolic dysfunction. Right Ventricle Normal right ventricle. Atria The left and right atria are normal. Mitral Valve Mild diffuse mitral valve thickening. Mild mitral annular calcification. Trivial mitral valve insufficiency. Tricuspid Valve Mild tricuspid valve insufficiency. Normal pulmonary artery pressure. Aortic Valve Trisinus/trileaflet aortic valve. Mild (1+) aortic valve insufficiency. Pulmonic Valve The pulmonic valve is not well visualized. Great Vessels Normal sized aortic root. Pericardium/Pleural Trivial pericardial effusion. MMode/2D Measurements & Calculations LVIDd: 4.5 cm IVSd: 1.3 cm Ao root diam: 3.2 cm LVIDs: 2.5 cm LVPWd: 1.3 cm RVDd: 2.9 cm FS: 43.8 % LAV(MOD-bp): 42.4 ml LVAd ap4: 25.2 cm2 LVAd ap2: 29.8 cm2 LAV(MOD-bp) Indexed: 18.0 ml/m2 LVLd ap4: 8.0 cm LVLd ap2: 7.7 cm LAV(MOD-sp2): 46.9 ml EDV(MOD-sp4): 66.3 ml EDV(MOD-sp2): 98.9 ml LAV(MOD-sp4): 34.4 ml EDV(sp4-el): 67.2 ml EDV(sp2-el): 98.3 ml LVAs ap4: 14.7 cm2 LVAs ap2: 16.2 cm2 LVLs ap4: 6.9 cm LVLs ap2: 6.9 cm ESV(MOD-sp4): 27.6 ml ESV(MOD-sp2): 32.8 ml ESV(sp4-el): 26.5 ml ESV(sp2-el): 32.3 ml EF(MOD-sp4): 58.4 % EF(MOD-sp2): 66.9 % EF(sp4-el): 60.6 % SV(MOD-sp4): 38.7 ml SV(MOD-sp2): 66.1 ml SV(sp4-el): 40.7 ml LA dimension(2D): 3.5 cm LA A4 area: 14.8 cm2 RA A4 area: 10.9 cm2 TAPSE: 1.9 cm Time Measurements MV dec time: 0.22 sec Doppler Measurements & Calculations MV E max biju: 65.1 cm/sec Lat Peak E' Biju: 6.9 cm/sec Med Peak E' Biju: 6.9 cm/sec MV A max biju: 98.2 cm/sec E/E' lat: 9.5 E/E' med: 9.5 MV E/A: 0.66 MV dec slope: 301.8 cm/sec2 Ao V2 max: 140.1 cm/sec AI max biju: 437.6 cm/sec Ao max P.9 mmHg AI max P.6 mmHg Ao V2 mean: 100.1 cm/sec AI dec slope: 247.2 cm/sec2 Ao mean P.4 mmHg AI P1/2t: 518.3 msec Ao V2 VTI: 30.9 cm AV (velocity ratio): 0.92 LV V1 max: 121.1 cm/sec PA V2 max: 103.5 cm/sec TR max biju: 237.9 cm/sec LV V1 max P.9 mmHg TR max P.6 mmHg LV V1 mean P.3 mmHg LV V1 mean: 87.4 cm/sec LV V1 VTI: 28.3 cm ECHO/Echo Complete Interpretation Summary Mild concentric left ventricular hypertrophy. The left ventricular ejection fraction is 65 %. Stage 1 diastolic dysfunction. Mild mitral annular calcification. Mild tricuspid valve insufficiency. Mild (1+) aortic valve insufficiency. Trivial pericardial effusion. Ordering Physician: Jaime Porter Referring Physician: Jaime Porter Performed By: Tara Monroe RDCS
== END | disposition home or self-care (01) ==
PROVIDERS: PCP Student in an Organized Health Care Education/Training Program; Referring Provider Student in an Organized Health Care Education/Training Program; Visit Provider Student in an Organized Health Care Education/Training Program
DX: R07.9 Chest pain, unspecified (principal)
CPT/HCPCS: 93017; 93306

== ENCOUNTER → 2025-06-16 | Outpatient (CLI) | payer OTHER, SELFPAY ==
[2025-06-16 09:24] LABS: Hematocrit 31.4 % (37-47); Hemoglobin 9.0 g/dL (12.0-15.0); Immature Granulocytes Count 0.020 X10^3/uL (0.0-0.0); Mean Corp Hgb Conc 28.7 g/dL (32-36); Mean Corpuscular Volume 77.0 fL (81-99); Mean Platelet Vol. 9.8 fl (6.2-12.0); NRBC Flagged by Analyzer 0 % (0-5); Platelet Count 306 K/mm3 (150-450); RBC Distribution Width CV 18.1 % (11.6-14.6); RBC Distribution Width SD 49.6 fl (35.1-43.9); Red Blood Count 4.08 M/mm3 (4.2-5.4); White Blood Count 6.5 K/mm3 (4.4-11.0)
[2025-06-16 10:30] LABS: AST(SGOT) 15 U/L (<=31); Alanine Aminotransfer ALT/SGPT 10 U/L (<=34); Albumin, Serum 4.0 g/dL (3.5-5.0); Alkaline Phosphatase 96 U/L (35-104); Anion Gap 11 (5-15); BUN 16 mg/dL (4-19); BUN/Creat Ratio 22.3 RATIO (10-20); Calcium,Total 8.9 mg/dL (7.6-11.0); Carbon Dioxide 21.9 mmol/L (21.0-32.0); Chloride 107 mmol/L (98-108); Globulin 2.4 g/dL (2.2-4.2); Glucose 108 mg/dL (70-99); Potassium 4.4 mmol/L (3.3-5.1)
[2025-06-16 10:39] LABS: Vitamin B12 < 150 pg/mL (180-914)
[2025-06-16 11:35] LABS: Vitamin D,25 Hydroxy 39.9 ng/mL (30-100)
== END | disposition home or self-care (01) ==
PROVIDERS: PCP Student in an Organized Health Care Education/Training Program; Referring Provider Student in an Organized Health Care Education/Training Program; Visit Provider Student in an Organized Health Care Education/Training Program
DX: Z00.00 Encounter for general adult medical examination without abnormal findings (principal); Z13.1 Encounter for screening for diabetes mellitus; I10 Essential (primary) hypertension; E53.8 Deficiency of other specified B group vitamins; E55.9 Vitamin D deficiency, unspecified
CPT/HCPCS: 36415; 80053; 82306; 82607; 83036; 84443; 85025